=== PATIENT | female | born 1940 | race Caucasian/White ===

== ENCOUNTER → 2018-09-04 | Outpatient (CLI) | payer OTHER, MEDICAID | LOC: M.MRI 11:19 | DX: S83.232A Complex tear of medial meniscus, current injury, left knee, initial encounter (principal); S83.282A Other tear of lateral meniscus, current injury, left knee, initial encounter; M17.12 Unilateral primary osteoarthritis, left knee; M25.462 Effusion, left knee; M71.22 Synovial cyst of popliteal space [Baker], left knee; M25.762 Osteophyte, left knee; X58.XXXA Exposure to other specified factors, initial encounter; Y93.89 Activity, other specified; Y92.89 Other specified places as the place of occurrence of the external cause; Y99.8 Other external cause status ==

== ENCOUNTER 2018-10-06 07:02 | Inpatient (IN) | payer OTHER, MEDICAID ==
[2018-09-24 09:33] LABS: INR 1.1; PROTIME 10.8 Seconds (9.20-11.50)
[2018-09-24 09:36] LABS: HEMATOCRIT 34.9 % (37.0-47.0); HEMOGLOBIN 11.8 gm/dL (12.0-15.0); MCH 31.4 pg (26.0-34.0); MCHC 33.9 g/dL (28.0-37.0); MCV 92.7 fL (80.0-100.0); MPV 9.6 fl. (7.2-11.1); RBC 3.76 mil/uL (4.20-5.00); RDW-CV 16.2 % (10.5-14.5); WBC 7.3 thou/uL (4.0-11.0)
[2018-09-24 09:38] LABS: ALBUMIN 3.7 g/dL (3.4-5.0); CALCIUM 9.1 mg/dL (8.5-10.1); CREATININE 1.3 mg/dL (0.6-1.3); POTASSIUM 4.8 mmol/L (3.5-5.1); TOTAL BILIRUBIN 0.4 mg/dL (<0.1-1.0); TOTAL PROTEIN 6.9 g/dL (6.4-8.2)
[2018-09-24 11:34] LABS: URINE BILIRUBIN NEGATIVE (Negative); URINE BLOOD NEGATIVE (Negative); URINE CLARITY CLEAR; URINE COLOR YELLOW; URINE GLUCOSE-RANDOM NEGATIVE (Negative); URINE KETONES NEGATIVE (Negative); URINE LEUKOCYTES-REFLEX TRACE (Negative); URINE NITRITE-REFLEX NEGATIVE (Negative); URINE PROTEIN NEGATIVE (Negative); URINE UROBILINOGEN 0.2 E.U./dl (0.2-1.0)
[2018-09-24 11:35] LABS: SQUAMOUS 4-10 Moderate /LPF (0-3)
[2018-09-24 11:36] LABS: URINE RBC None Seen /HPF (0-2); URINE WBC-REFLEX 0-5 Rare /HPF (0-5)
[2018-09-24 11:37] LABS: BACTERIA-REFLEX None Seen /HPF (None Seen); CRYSTALS None Seen /LPF (None Seen)
[2018-09-24 11:38] LABS: HYALINE CASTS 0-3 Few /LPF (None Seen); MUCUS 0-3 Light strn/LPF (None Seen)
--- NOTE | 2018-09-24 13:15 | EKG ---
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1940 Requested By: Valentín France Order Number: [id number] Jazmyn MD: Beltran Campoverde Measurements Intervals [place] Rate: 72 P: 28 AL: 139 QRS: -36 QRSD: 82 T: 45 QT: 387 QTc: 424 Interpretive Statements Sinus rhythm Abnormal R-wave progression, late transition Left ventricular hypertrophy Baseline wander in lead(s) II,III,aVF No previous ECG available for comparison Electronically Signed On 09-24-2018 13:15:32 CDT by Beltran Campoverde [email or web address] <ELECTRONICALLY SIGNED> By: Beltran Campoverde MD, [facility] 09/24/18 1315 9 9 Beltran Campoverde MD, FACC /EPI
[~2018-10-06] VITALS: Ht 152.4 cm; Wt 83.5 kg
[~2018-10-06 07:02] MED LIST: ASPIR 8181 MG PO; CYMBALTA60 MG PO; DIOVAN160 MG PO; FOSAMAX 70 MG T70 MG PO; IRON325 PO; JANUMET 50-5001 EACH PO; LYRICA 50 MG50 MG PO; NAMENDA 10 MG T10 MG PO; NORCO 7.5-3251 EACH PO; PROTONIX40 M1 PO; ROSUVASTATIN CA20 MG PO; SINGULAIR 10 MG10 M1 PO; SYNTHROID25 MC1 PO; ZYLOPRIM300 MG PO
[2018-10-06 07:37] VITALS: BP 191/103
[2018-10-06 11:58] VITALS: BP 141/54
[2018-10-06 16:51] VITALS: BP 149/45
[2018-10-06 20:00] VITALS: BP 163/68
[2018-10-07 01:10] VITALS: BP 160/58
[2018-10-07 04:53] LABS: HEMATOCRIT 26.6 % (37.0-47.0); HEMOGLOBIN 8.8 gm/dL (12.0-15.0)
[2018-10-07 04:56] VITALS: BP 170/56
[2018-10-07 08:00] VITALS: BP 159/76
[2018-10-07 12:00] VITALS: BP 120/54
[2018-10-07 15:50] VITALS: BP 132/53
[2018-10-07 20:29] VITALS: BP 183/79
[2018-10-08 00:32] VITALS: BP 169/65
[2018-10-08 04:13] VITALS: BP 155/68
[2018-10-08 04:29] LABS: ABSOLUTE EOSINOPHILS 0.1 thou/uL (0.0-0.7); ABSOLUTE LYMPHOCYTES 2.1 thou/uL (0.8-5.3); ABSOLUTE MONOCYTES 1.7 thou/uL (0.0-1.2); ABSOLUTE NEUTROPHILS 7.1 thou/uL (1.6-8.1); BASOPHILS 0.3 %; EOSINOPHILS 0.7 %; HEMATOCRIT 23.5 % (37.0-47.0); HEMOGLOBIN 7.9 gm/dL (12.0-15.0); LYMPHOCYTES 19.4 %; MCH 31.2 pg (26.0-34.0); MCHC 33.8 g/dL (28.0-37.0); MCV 92.3 fL (80.0-100.0); MPV 9.5 fl. (7.2-11.1); NUCLEATED RBCS 0 /100WBC; PLATELET COUNT* 148 thou/uL (150-400); POLYS 64.6 %; RBC 2.55 mil/uL (4.20-5.00); RDW-CV 16.1 % (10.5-14.5)
[2018-10-08 04:32] LABS: CALCIUM 8.9 mg/dL (8.5-10.1); CREATININE 1.4 mg/dL (0.6-1.3); POTASSIUM 5.3 mmol/L (3.5-5.1)
[2018-10-08 08:00] VITALS: BP 159/59
--- NOTE | 2018-10-08 08:54 | OP ---
[facility] [address] [place] [address] OPERATIVE REPORT Name: LIBERTY MIX Room: [address] IN M.R.#: [id number] Admission: 10/06/18 Attend Phys: Homa Downey Discharge: Date of : 44 Report #: [id number] THIS REPORT FOR: //name// CC: aMri Delarosa DATE OF SERVICE: 10/06/2018 PREOPERATIVE DIAGNOSIS: Left knee osteoarthritis. POSTOPERATIVE DIAGNOSIS: Left knee osteoarthritis. PROCEDURE: Left total knee arthroplasty. SURGEON: Valentín France II, DO. RECOVERY ROOM NURSE: BARRY Barber. ANESTHESIA: General endotracheal. ESTIMATED BLOOD LOSS: 50 mL. ANTIBIOTICS: Ancef preoperatively. DRAINS: Medium Hemovac. COMPLICATIONS: None. CONDITION: Stable to recovery room. IMPLANTS: Listed in the operative record and progress note. BRIEF HISTORY: The patient was seen in the preoperative area. Preop H and P was performed. Site was marked, questions were answered. Risks and benefits were discussed with the patient in detail about surgery and wished to proceed assuming all risks. DESCRIPTION OF PROCEDURE: The patient was taken to operative suite and placed supine on the operating table and given appropriate anesthesia. A well-padded tourniquet was applied to the upper thigh, which was inflated to 300 mmHg after gravity exsanguination. The operative knee was sterilely prepped and draped. Surgery began by midline incision. This was carried down to the subcutaneous tissues. A medial parapatellar arthrotomy was performed and carried down to bone. The patella was then everted and excess soft tissues were removed around the femur. Femoral cutting block was then applied, checked with a drop moy for [facility] [address] [place] [address] OPERATIVE REPORT Name: LIBERTY MIX Room: [address] IN ..#: [id number] Admission: 10/06/18 Attend Phys: Homa Downey Discharge: Date of : 44 Report #: [id number] rotational alignment, pinned in appropriate position and appropriate cuts were made. A 4-in-1 cutting block was then applied, checked for rotational alignment, pinned in appropriate position and appropriate cuts were made. The tibia was then exposed. Excess meniscus was removed. Retractor was placed on collateral ligaments. The tibial cutting block was then applied, pinned in appropriate position and checked with a drop moy for rotation, alignment and slope and appropriate cut was made. The tibial bone was removed. The tibial baseplate was then applied, checked for rotational alignment with a drop moy and pinned into appropriate position. The femur was then applied and box cut was reamed. This was then trialed with appropriate spacer, which showed excellent fit and fill and excellent stability of the knee through a range of motion. Patella was then reamed in appropriate fashion and sized to appropriate size. Three peg holes were drilled and were then trialed and showed excellent flexion and extension with excellent tracking of patella within the groove. These trials were then removed. The tibia was punched in appropriate fashion. Bone ends were cleansed with Pulsavac irrigation and cement was mixed and applied to final implants. These were then malleted into position and held with the knee in extension and compressed to allow the cement to cure. After it cured, excess was removed using a Lamar and osteotome. The wound was then copiously irrigated and the final spacer was then malleted in position. Tourniquet was deflated. Hemostasis was obtained with electrocautery. Pain cocktail was injected. PRP gel was sprayed through the internal aspects of the knee. Medium Hemovac drain was applied. Capsule was closed with #2 FiberWire and #1 Vicryl in [id number] fashion. Skin was closed with 2-0 Vicryl and running 3-0 Monocryl. Dermabond and sterile dressing applied. Kapil wrap and PolarCare applied. The patient transported to Recovery Room in stable condition. Counts were correct throughout the procedure. <ELECTRONICALLY SIGNED> By: Valentín France II, DO 10/08/18 [id number] France II, DO /nt
[2018-10-08 09:48] VITALS: BP 155/68
[2018-10-08 16:26] VITALS: BP 153/67
[2018-10-08 20:00] VITALS: BP 139/76
[2018-10-09 00:37] VITALS: BP 149/64
[2018-10-09 04:15] VITALS: BP 153/57
[2018-10-09 08:00] VITALS: BP 153/73
[2018-10-09 11:43] VITALS: BP 128/55
[2018-10-09 15:37] VITALS: BP 143/63
[2018-10-09 20:00] VITALS: BP 138/74
[2018-10-10 08:12] VITALS: BP 149/46
[2018-10-10 08:58] LABS: ABSOLUTE EOSINOPHILS 0.1 thou/uL (0.0-0.7); ABSOLUTE LYMPHOCYTES 1.2 thou/uL (0.8-5.3); ABSOLUTE MONOCYTES 0.9 thou/uL (0.0-1.2); ABSOLUTE NEUTROPHILS 5.1 thou/uL (1.6-8.1); BASOPHILS 0.4 %; EOSINOPHILS 1.8 %; HEMATOCRIT 22.7 % (37.0-47.0); HEMOGLOBIN 7.5 gm/dL (12.0-15.0); LYMPHOCYTES 16.5 %; MCH 30.8 pg (26.0-34.0); MCHC 33.1 g/dL (28.0-37.0); MONOCYTES 11.8 %; MPV 8.8 fl. (7.2-11.1); NUCLEATED RBCS 0 /100WBC; PLATELET COUNT* 199 thou/uL (150-400); POLYS 69.5 %; RBC 2.44 mil/uL (4.20-5.00); RDW-CV 15.9 % (10.5-14.5); WBC 7.4 thou/uL (4.0-11.0)
[2018-10-10 15:28] VITALS: BP 173/77
[2018-10-10 20:00] VITALS: BP 153/74
[2018-10-11 08:26] VITALS: BP 181/67
[2018-10-11 09:13] LABS: HEMATOCRIT 27.1 % (37.0-47.0); HEMOGLOBIN 8.7 gm/dL (12.0-15.0)
[2018-10-11 19:50] VITALS: BP 181/66
[2018-10-12 08:00] VITALS: BP 171/90
[2018-10-12] MEDS ORDERED: XARELTO10 MG PO (15:16)
== END 2018-10-12 15:40 | disposition home health service (06) | DRG 469 ==
LOC: M.SUR 07:02 → EDSTATUS 08:26 → M.PRE 08:30 → M.ORTHSURG 09:08 → M.TBA 09:08 → M.ORTHSURG 11:40 → M.PRE 12:08 → EDSTATUS 12:10 → M.SUR 12:12 → M.ORTHSURG 10-11 12:40
PROVIDERS: Internal Medicine; Orthopaedic Surgery; ADMIT Internal Medicine
PROC: 0SRD0J9 Replacement of Left Knee Joint with Synthetic Substitute, Cemented, Open Approach (ICD-10-PCS; principal; 2018-10-06)
DX: M17.12 Unilateral primary osteoarthritis, left knee (principal); G92 Toxic encephalopathy; D62 Acute posthemorrhagic anemia; Z96.1 Presence of intraocular lens; M10.9 Gout, unspecified; M81.0 Age-related osteoporosis without current pathological fracture; E78.5 Hyperlipidemia, unspecified; I10 Essential (primary) hypertension; E11.9 Type 2 diabetes mellitus without complications; T50.905A Adverse effect of unspecified drugs, medicaments and biological substances, initial encounter; E03.9 Hypothyroidism, unspecified; Z96.651 Presence of right artificial knee joint; Z88.8 Allergy status to other drugs, medicaments and biological substances; Z88.5 Allergy status to narcotic agent; Z98.49 Cataract extraction status, unspecified eye; Z79.84 Long term (current) use of oral hypoglycemic drugs; Y92.89 Other specified places as the place of occurrence of the external cause